=== PATIENT | female | born 1945 | race Caucasian/White ===

== ENCOUNTER → 2016-09-22 | Outpatient (CLI) | payer OTHER | LOC: FIMAGING 15:50 | PROVIDERS: ATTEND Physician Assistant | DX: M25.552 Pain in left hip (principal); M16.12 Unilateral primary osteoarthritis, left hip; M25.852 Other specified joint disorders, left hip; M51.36 Other intervertebral disc degeneration, lumbar region; S76.312S Strain of muscle, fascia and tendon of the posterior muscle group at thigh level, left thigh, sequela ==

== ENCOUNTER → 2017-03-31 | Outpatient (CLI) | payer OTHER | LOC: FIMAGING 16:21 | PROVIDERS: ATTEND Internal Medicine | DX: Z12.31 Encounter for screening mammogram for malignant neoplasm of breast (principal) | CPT/HCPCS: G0202 ==

== ENCOUNTER 2017-04-12 17:22 | Emergency (ER) | payer OTHER ==
[2017-04-12 17:36] VITALS: BP 120/80; PULSE 80; RESP 16; TEMP 99.5; O2SAT 94
--- NOTE | 2017-04-12 18:02 | EDPHY ---
H & P Time Seen by Provider: 04/12/17 17:28 HPI/ROS: CHIEF COMPLAINT: Cough, sinus congestion History by patient HISTORY OF PRESENT ILLNESS: 71-year-old woman with a history of seizures and depression presents complaining of 3 days of runny nose, sinus congestion and pressure in her cheeks, forehead, ears and jaw and a cough productive of dickey sputum. Patient denies any fever but has felt chilled at home. He had some "queasiness but no nausea or vomiting. She has had no diarrhea or rash. She has been exposed to multiple people with similar illnesses at work and her grandchildren. Patient quit smoking 20 years ago. She has tried a Neti pot and Claritin with minimal relief. REVIEW OF SYSTEMS: As in HPI, and all other systems reviewed and are negative Smoking Status: Never smoked Physical Exam: General Appearance: Alert and no distress. Head: normocephalic, atraumatic, no sinus tenderness Eyes: Pupils equal and round no injection. Ears: TM without redness or bulging but with fluid behind the TMs bilaterally OP: mucus membranes moist, no tonsillar enlargement, no redness or exudates Neck: no meningismus, bilateral small, nontender cervical nodes, no submandibular nodes Respiratory: Chest is nontender, lungs are clear to auscultation. Positive end -expiratory wheeze on forced expiration and cough Cardiac: regular rate and rhythm. Gastrointestinal: Abdomen is soft and nontender, no masses, bowel sounds normal. Musculoskeletal: Neck is supple and nontender. Extremities have full range of motion and are nontender. Skin: No rashes or lesions. Constitutional: Initial Vital Signs Temperature (C) 37.5 C 04/12/17 17:31 Heart Rate 80 04/12/17 17:31 Respiratory Rate 16 04/12/17 17:31 Blood Pressure 120/80 04/12/17 17:31 O2 Sat (%) 94 04/12/17 17:31 O2 Delivery Mode Room Air Allergies/Adverse Reactions: erythromycin lactobionate [From Erythrocin] Allergy (Verified 04/12/17 17:30) Home Medications: Medication Instructions Recorded Divalproex Sodium [Depakote] 250 mg PO 04/03/12 QUETIAPINE FUMARATE [Seroquel] 50 mg PO 04/03/12 Estradiol 04/12/17 Meloxicam 04/12/17 MDM/Departure - [facility] ED Course/Re-evaluation: 71-year-old woman presents with URI symptoms x4 days with normal vital signs and no evidence of systemic toxicity. We discussed home care and conservative measures. We discussed how there is no indication for antibiotic treatment this time. Patient was discharged home in stable condition. - Depart Disposition: Home, Routine, Self-Care Clinical Impression: Upper respiratory infection, acute Condition: Good Instructions: Upper Respiratory Infection (ED) Additional Instructions: You were seen by Dr. April Wright today. Take pseudoephedrine for your congestion and sinus pain. Try using albuterol inhaler for your cough, especially before bed at night. Try hot drinks with honey for cough and sore throat. You may take Tylenol as needed for pain. Return for any worsening or new concerns. Referrals: Antionette Hitchcock MD [Primary Care Provider] - As per Instructions
[2017-04-12] MEDS ORDERED: ALBUTEROL INH PREPACK MDI TAKEHOME ONE (18:04)
== END 2017-04-12 18:15 | disposition home or self-care (01) ==
LOC: CED 17:22
DX: J06.9 Acute upper respiratory infection, unspecified (principal)

== ENCOUNTER 2017-10-22 09:07 | Inpatient (IN) | payer OTHER ==
--- NOTE | 2017-10-22 08:17 | PDHPUP ---
History & Physical Update H&P update statement: This history and physical update is based on an assessment of the patient which was completed after admission or registration (within 24 hours), but prior to the surgery/procedure. H&P update: H&P reviewed & patient examined, no change in patient's condition since H&P completed
[~2017-10-22 09:07] MED LIST: BUPI/epINEPH/KETOROLAC IU ONE; ROPIVACAINE 0.2% 80 MG, EPINEPHrine 0.2 MG, KETOROLAC TROMETHAMINE 30 MG in SYRINGE 0 ML IU ONE; TRANEXAMIC ACID 3,000 MG in NS (SYRINGE) 50 ML IRR ONE; TRANEXAMIC ACID 3,000 MG/50 ML BAG IRR ONE
[2017-10-22] MEDS ORDERED: DEXAMETHASONE 4 MG/ML VIAL IVP ONE (09:38)
[2017-10-22] MEDS ORDERED: ACETAMINOPHEN 325 MG TAB PO ONE (09:38)
[2017-10-22] MEDS ORDERED: FAMOTIDINE 20 MG TAB PO ONE (09:38)
[2017-10-22] MEDS ORDERED: ceFAZolin 2 GM/SWFI 2 GM/20 ML SYR IVP ONE (09:38)
[2017-10-22] MEDS ORDERED: LR 1,000 ML IV ONE (09:39)
[2017-10-22] MEDS ORDERED: LIDOCAINE 1% 2 ML INJ ID PRN (09:39)
[2017-10-22] MEDS ORDERED: MIDAZOLAM 2 MG/2 ML VIAL IVP ONE (10:53)
--- NOTE | 2017-10-22 10:53 | PDANEPAE ---
ANE History of Present Illness Hip OA ANE Past Medical History - Cardiovascular History Hx Hypertension: No Hx Arrhythmias: No Hx Chest Pain: No Hx Coronary Artery / Peripheral Vascular Disease: No Hx CHF / Valvular Disease: No Hx Palpitations: No - Pulmonary History Hx COPD: No Hx Asthma/Reactive Airway Disease: No Hx Recent Upper Respiratory Infection: No Hx Oxygen in Use at Home: No Hx Sleep Apnea: No Sleep Apnea Screening Result - Last Documented: Negative - Neurologic History Hx Cerebrovascular Accident: No Hx Seizures: Yes Hx Dementia: No Neurologic History Comment: poorly understood seizure disorders- on depakote- she can feel the symptoms but not seen by others. last one maybe two months ago. recent headaches- went to pcp this morning she feels they are more sinus headaches - Endocrine History Hx Diabetes: No - Renal History Hx Renal Disorders: No - Liver History Hx Hepatic Disorders: No - Neurological & Psychiatric Hx Hx Neurological and Psychiatric Disorders: Yes Neurological / Psychiatric History Comment: bipolar - Cancer History Hx Cancer: No - Congenital Disorder History Hx Congenital Disorders: No - GI History Hx Gastrointestinal Disorders: No - Other Health History Other Health History: wears glasses. 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 1979 uterine suspension and lysis of adhesions from endometriosis. bone setting. tonsillectomy at 20 yo ANE Review of Systems Review of Systems: - Exercise capacity METS (RN): 4 METS ANE Patient History - Allergies Allergies/Adverse Reactions: erythromycin lactobionate [From Erythrocin] Allergy (Verified 09/29/17 12:02) makes me feel sick to my stomach hydrocodone Allergy (Verified 09/29/17 12:02) makes me feel like i can't breathe - Home Medications Home Medications: Acetaminophen [Tylenol ES 500 mg (*)] 500 mg PO Q6 PRN 09/22/17 [Last Taken ] Cholecalciferol Vit D3 [Vitamin D3 (*)] 2,000 units PO DAILY 09/22/17 [Last Taken 2 Weeks Ago ~10/08/17] Divalproex ER [Depakote ER 500 MG (*)] 500 mg PO HS 09/22/17 [Last Taken 00:59] Estradiol Cream 0.5 gm TP WESA 09/22/17 [Last Taken 10/15/17] Herbals/Supplements -Info Only 1 ea PO DAILY 09/22/17 [Last Taken 2 Weeks Ago ~ 10/08/17] Meloxicam 15 mg PO DAILY 09/22/17 [Last Taken 2 Weeks Ago ~10/08/17] [place]-3 Fatty Acids [Fish Oil 1000 mg (*)] 1,000 mg PO DAILY 09/22/17 [Last Taken 2 Weeks Ago ~10/08/17] QUEtiapine FUMARATE [Seroquel 25 mg (*)] 25 mg PO HS 09/22/17 [Last Taken 00:59] - NPO status NPO Since - Liquids (Date): 10/22/17 NPO Since - Liquids (Time): 08:00 NPO Since - Solids (Date): 10/21/17 NPO Since - Solids (Time): 23:00 - Anes Hx Anes Hx: no prior problems - Smoking Hx Smoking Status: Former smoker - Family Anes Hx Family Hx Anesthesia Complications: mother- was alcoholic- extreme confusion after anesthesia ANE Labs/Vital Signs - Vital Signs Blood Pressure: 126/73 Heart Rate: 59 Respiratory Rate: 16 O2 Sat (%): 96 Height: 173.99 cm Weight: 77.111 kg ANE Physical Exam - Airway Neck exam: decreased ROM Mallampati Score: Class 1 Mouth exam: normal dental/mouth exam - Pulmonary Pulmonary: no respiratory distress - Cardiovascular Cardiovascular: regular rate and rhythym - ASA Status ASA Status: II ANE Anesthesia Plan Anesthesia Plan: spinal
[2017-10-22] MEDS ORDERED: PROPOFOL/EMULSION 500 MG/50 ML BOTTLE IV ONE ×2 (11:02→12:11)
[2017-10-22] MEDS ORDERED: HYDROmorphONE/DILAUDID 1 MG/ML INJ IVP PRN (11:54)
[2017-10-22] MEDS ORDERED: NALOXONE HCL 0.4 MG/ML INJ IVP PRN (11:54)
[2017-10-22] MEDS ORDERED: ONDANSETRON 4 MG/2 ML VIAL IVP PRN ×2 (11:54→12:37)
[2017-10-22] MEDS ORDERED: PROMETHAZINE HCL 25 MG/ML INJ IVP PRN ×2 (11:54→12:37)
--- NOTE | 2017-10-22 12:36 | POSTANESTH ---
Post Anesthetic Evaluation Cardiovascular Status: Normal, Stable Respiratory Status: Normal, Stable Level of Consciousness/Mental Status: Can Participate in Eval Pain Control: Adequate, Prn Tx Ordered Nausea/Vomiting Control: Adequate, Prn Tx Ordered Complications Possibly Related to Anesthesia: None Noted
[2017-10-22] MEDS ORDERED: MAGNESIUM HYDROXIDE 30 ML UDCUP PO PRN (12:37)
[2017-10-22] MEDS ORDERED: BISACODYL 10 MG SUPP PR PRN (12:37)
[2017-10-22] MEDS ORDERED: diphenhydrAMINE 25 MG CAP PO PRN (12:37)
[2017-10-22] MEDS ORDERED: METOCLOPRAMIDE 10 MG/2 ML VIAL IVP PRN (12:37)
[2017-10-22] MEDS ORDERED: POLYETHYLENE GLYCOL 3350 17 GM PKT PO PRN (12:37)
[2017-10-22] MEDS ORDERED: TEMAZEPAM 15 MG CAP PO PRN (12:37)
[2017-10-22] MEDS ORDERED: LACTULOSE 20 GM/30 ML UDCUP PO PRN (12:37)
[2017-10-22] MEDS ORDERED: DIPHENOXYLATE/ATROPINE LOMOTIL 1 TAB PO PRN (12:37)
[2017-10-22] MEDS ORDERED: ONDANSETRON DISINTEGRATING 4 MG TAB PO PRN (12:37)
[2017-10-22] MEDS ORDERED: PROMETHAZINE HCL 25 MG SUPPR PR PRN (12:37)
--- NOTE | 2017-10-22 12:37 | POSTOPPROG ---
Post Op Note Date of Operation: 10/22/17 Surgeon: Sunshine Locke Assistant Front End Manager: richard locke Anesthesiologist: dr. ayers Anesthesia: Spinal Pre-op Diagnosis: left hip OA Post-op Diagnosis: same Indication: left hip pain Procedure: L MANNY ant approach Findings: severe hip OA Inf/Abcess present in the surg proc area at time of surgery?: No EBL: 100-500
[2017-10-22] MEDS ORDERED: LR 1,000 ML IV SCH (13:00)
[2017-10-22] MEDS ORDERED: fentaNYL 100 MCG/2 ML INJ ONE (13:52)
[2017-10-22] MEDS: fentaNYL 100 MCG/2 ML INJ IVP PRN ×3 (13:54→14:47)
[2017-10-22] MEDS ORDERED: ceFAZolin 2 GM/DEXTROSE 100 ML IV SCH (14:00)
[2017-10-22] MEDS: CYCLOBENZAPRINE 10 MG TAB PO PRN (15:34)
[2017-10-22] MEDS: oxyCODONE IR 5 MG TAB PO PRN ×3 (15:35→22:33)
[2017-10-22] MEDS: ACETAMINOPHEN 325 MG TAB PO SCH (18:16)
[2017-10-22] MEDS: ceFAZolin 2 GM/SWFI 2 GM/20 ML SYR IVP SCH (18:17)
[2017-10-22] MEDS: DIVALPROEX ER 500 MG TAB PO SCH (21:48)
[2017-10-22] MEDS: ASPIRIN 81 MG CHEWABLE TAB PO SCH (21:48)
[2017-10-22] MEDS: SENNOSIDES/DOCUSATE SODIUM TAB PO SCH (21:48)
[2017-10-22] MEDS: FAMOTIDINE 20 MG TAB PO SCH (21:48)
[2017-10-22] MEDS: QUEtiapine FUMARATE 25 MG TAB PO SCH (21:48)
[2017-10-23] MEDS: ACETAMINOPHEN 325 MG TAB PO SCH ×4 (00:13→18:54)
[2017-10-23] MEDS: CYCLOBENZAPRINE 10 MG TAB PO PRN ×3 (00:13→21:47)
[2017-10-23] MEDS: ceFAZolin 2 GM/SWFI 2 GM/20 ML SYR IVP SCH (02:46)
[2017-10-23] MEDS: oxyCODONE IR 5 MG TAB PO PRN (09:02)
[2017-10-23] MEDS: ASPIRIN 81 MG CHEWABLE TAB PO SCH ×2 (09:02→21:45)
[2017-10-23] MEDS: FAMOTIDINE 20 MG TAB PO SCH ×2 (09:03→21:46)
[2017-10-23] MEDS: SENNOSIDES/DOCUSATE SODIUM TAB PO SCH ×2 (09:10→21:46)
[2017-10-23] MEDS ORDERED: NS 500 ML IV ONE (12:00)
--- NOTE | 2017-10-23 12:40 | PDMN ---
Medical Necessity Medical necessity: IP surgery per [facility] cpt [id number] LTHA
--- NOTE | 2017-10-23 13:13 | SOAPPROG ---
SOAP Progress Note Assessment/Plan: Assessment: Patient is doing well POD 1 s/p L MANNY Pain management: pain is well controlled on oral pain meds. VTE ppx: recommend aspirin 81 mg BID for 4 weeks, cont NANNETTE and SCDs Anemia: level is expected initially postop. Asymptomatic. Continue to monitor D/c planning: d/c to home today pending release from PT lightheadedness: recommend IV NS bolus, increase fluids, monitor. proceed with caution with going from laying to sittting to standing. Work with PT again this afternoon, if continues to be symptomatic, may need another night in the hospital. Plan: 10/23/17 13:11 Subjective: Katherine is resting comfortably, denies SOB ,chest pain and N/V. c/o lightheadedness Objective: Vital Signs Temp Pulse Resp BP Pulse Ox 36.6 C 64 16 92/47 L 99 10/23/17 12:00 10/23/17 12:00 10/23/17 12:00 10/23/17 12:00 10/23/17 12:00 Laboratory Results 10/23/17 05:05 10/22/17 10/23/17 10/24/17 05:59 05:59 05:59 Intake Total 2675 Output Total 1450 Balance 1225 incision dressing is clean and dry, NVI< +pf/df ICD10 Worksheet Patient Problems: Problems Problem Status Onset Primary localized osteoarthritis of left hip Acute
--- NOTE | 2017-10-23 13:51 | GOP ---
[f rep st] OPERATIVE REPORT DATE OF OPERATION: 10/22/2017 SURGEON: Noemi Garcia MD TOOLING MECHANIC: Ana Garcia PA-C ANESTHESIA: Spinal. PREOPERATIVE DIAGNOSIS: Left hip osteoarthritis. POSTOPERATIVE DIAGNOSIS: Left hip osteoarthritis. PROCEDURE PERFORMED: Left total hip arthroplasty with x-ray. FINDINGS: ESTIMATED BLOOD LOSS: 200 cc. INDICATIONS: The patient has progressively worsening arthritis of the hip, which has failed medical management. The patient understands the treatment options, including continued nonoperative care, an d has selected surgical intervention. The patient has decided to undergo total hip arthroplasty via the direct anterior approach, understanding the risks of the procedure including, but not limited to, neurovascular injury, infection, persistent pain, component wear and loosening, deep venous thrombos is, pulmonary embolism, limb length inequality, hip instability (including dislocation), and intraope rative fractures. DESCRIPTION OF PROCEDURE: After proper identification of the patient, including verification and mar jeannine the surgical site, the patient was brought to the operating room and placed in the supine positi on. All bony prominences were well padded. Anesthesia was induced without complication and intraven ous prophylactic antibiotics were administered prior to skin incision. The operative leg was placed in the Trumpf Arch table extension and the well leg in a Yellofin leg ho lder. The patient was prepped and draped in the usual sterile fashion. The C-arm was draped for int raoperative fluoroscopy to check acetabular position, femoral component position, including leg lengt h, and femoral offset. Attention was then drawn to surgical exposure of the hip. An incision was made with a #10 Bard Saida r blade starting 3 cm lateral and 3 cm distal to the anterior superior iliac spine measuring 8 to 10 cm and coursing distally toward the greater trochanter. The skin and subcutaneous tissues were divid ed sharply down to the fascia cuate. The fascia cuate was incised in line with the skin incision expos ing the underlying tensor fascia cuate muscle. The muscle was bluntly elevated from the fascia and th e first extracapsular Cobra retractor was placed laterally at the junction of the superior femoral ne ck and greater trochanter. The lateral femoral circumflex vessels were identified, cauterized, and d ivided with the Aquamantys bipolar cautery. The deep investing fascia of the TFL was divided to allo w proper mobilization of the muscle preventing damage during the retraction. The reflected head of t he rectus femoris muscle was elevated off the anterior hip capsule and a medial Cobra retractor was p laced just proximal to the lesser trochanter. The anterior capsulotomy was made sharply from the superolateral acetabulum to the saddle junction of the superior femoral neck and greater trochanter, then coursing inferomedial towards the lesser troc hanter. The retractors were then placed in the intracapsular position for femoral neck osteotomy. C orresponding to pre-operative templating, the osteotomy was made with the oscillating saw carefully p rotecting the greater trochanter and soft tissues. The femoral head was removed from the acetabulum with a corkscrew and confirmed to be severely arthritic with exposed bone, deformity and osteophytes. Similar findings were confirmed in the acetabulum. The Arch table extension was then placed in 40 degrees external rotation. Attention was then drawn to the acetabular preparation. After placement of the anterior and posterio r Cobra retractors outside the labrum and intracapsular, the circumferential labrum was removed sharp ly. The foveal contents were then removed and hemostasis obtained with cautery. The first reamer selected was sized using the removed femoral head. Reaming began with medialization and then commenced in 2 mm increments at 45 degrees of abduction and 15 degrees of anteversion using fluoroscopic navigation. Reaming ceased 1 mm less than the definitive acetabular component and breanna esponded to the pre-operative templating. The final acetabular component was inserted using fluorosc opy to achieve proper orientation yielding excellent purchase and stability in the acetabulum. The f inal acetabular liner was then placed and its seating confirmed. Attention was then turned to the femur. The Arch table extension was placed in extension and adducti on, delivering the osteotomized femoral neck into the wound. A 2-pronged femoral elevator was placed at the calcar and another at the tip of the greater trochanter. The posterolateral capsule was rele ased with cautery allowing mobilization of the femur lateral and anterior for preparation. The exter nal rotators were visualized and preserved. A curette and rongeur were used to open the starting poi nt for broaching. Serial broaching started with the #0 broach and ended with the broach that exhibit ed excellent fit in the proximal femur. A change in pitch during mallet strikes was accompanied by nicole glover inability to advance the broach any further. The trial reduction was performed and fluoroscopic n avigation was utilized to check limb length. Adjustments were made to equalize limb length according ly. After the final trials were accepted they were removed and the wound was copiously lavaged. The femo ral component was seated to the same depth as the final broach and the femoral head was impacted onto the clean trunnion. The hip was then reduced for the final time and once more fluoroscopy was used to check that limb length equality was achieved. The wound was irrigated and closed in layers, the fascia cuate with 2-0 Quill, the subcutaneous tissue with 2-0 Quill, and the skin with Dermabond. Sterile dressings were applied. Final sharps and spon ge counts were accurate. The patient was then transferred to a hospital bed and brought to the [facility] room in stable condition. IMPLANTS: Accolade II size 4 at 127. Acetabular component is a 58 mm Trident II. The liner is a Tr ident X3, 36 mm. The head is a Biolox Delta 36 mm +5. /[id number]/MODL
[2017-10-23] MEDS ORDERED: oxyCODONE IR 5 MG TAB PO PRN (15:03)
[2017-10-23] MEDS: DIVALPROEX ER 500 MG TAB PO SCH (21:46)
[2017-10-23] MEDS: QUEtiapine FUMARATE 25 MG TAB PO SCH (21:46)
[2017-10-24] MEDS: ACETAMINOPHEN 325 MG TAB PO SCH ×4 (00:18→18:35)
[2017-10-24] MEDS ORDERED: oxyCODONE IR 5 MG TAB PO PRN (07:49)
[2017-10-24] MEDS ORDERED: NS 500 ML IV ONE (10:30)
[2017-10-24] MEDS: ASPIRIN 81 MG CHEWABLE TAB PO SCH ×2 (11:28→20:47)
[2017-10-24] MEDS: FAMOTIDINE 20 MG TAB PO SCH ×2 (11:28→20:47)
--- NOTE | 2017-10-24 12:24 | SOAPPROG ---
SOAP Progress Note Assessment/Plan: Assessment: Patient is doing well POD 2 s/p L MANNY Pain management: patient has pain with light touch to quad, will start gabapentin, most likely nerve pain contributing to overall pain picture VTE ppx: recommend aspirin 81 mg BID for 4 weeks, cont NANNETTE and SCDs Anemia: level has decreased a little, but patient has received several boluses due to hyptension, may be artificially low. Continue to monitor D/c planning: d/c to home vs SNF tomorrow pending release from PT and improvement in symptomatic hypotension lightheadedness: recommend IV NS bolus this morning, increase fluids, monitor. proceed with caution with going from laying to sitting to standing. patient may need SNF placement tomorrow. Plan: 10/23/17 13:11 10/24/17 12:21 Subjective: franky continues to c/o pain, even to light touch, and lightheadedness. Objective: Vital Signs Temp Pulse Resp BP Pulse Ox 36.9 C 66 16 86/44 L 98 10/24/17 08:15 10/24/17 08:15 10/24/17 08:15 10/24/17 08:15 10/24/17 08:15 Laboratory Results 10/24/17 05:05 10/23/17 10/24/17 10/25/17 05:59 05:59 05:59 Intake Total 2675 1250 Output Total 1450 3200 Balance 1225 -1950 incision dressing is clean and dry, TTP light touch distal quad, impaired hip flexion 2/5. ICD10 Worksheet Patient Problems: Problems Problem Status Onset Primary localized osteoarthritis of left hip Acute
[2017-10-24] MEDS: SENNOSIDES/DOCUSATE SODIUM TAB PO SCH ×2 (12:44→20:46)
[2017-10-24] MEDS: GABAPENTIN 300 MG CAP PO SCH ×2 (13:00→20:47)
--- NOTE | 2017-10-24 16:16 | ASMTCASEMG ---
Living Arrangements What is your living Answers: With Spouse arrangement? Who do you live with? Type Of Residence What kind of residence do Answers: House you live in? Discharge Plan Comments Coordination Status Comments Notes: PT is recommending SNF. CM spoke w/ ELIZABETH Espinosa regarding d/c POC. Ana would like CM to look into SNF. CM met w/ pt for dispo planning. Pt is agreeable to going to [facility] if she didn't improve tomorrow. CM completed triggered PASRR. CM faxed [facility]RR to [facility]. CM spoke w/ [facility] at [facility]. [facility] does not have a bed available until Friday. CM informed pt of this. CM provided pt w/ list of SNF in [facility]. Pt has chosen [facility]. Referrals made there. CM to follow. Plan: TBD Date Signed: 10/24/2017 04:16 PM Electronically Signed By:KISHA Henriquez
[2017-10-24] MEDS: DIVALPROEX ER 500 MG TAB PO SCH (20:47)
[2017-10-24] MEDS: QUEtiapine FUMARATE 25 MG TAB PO SCH (20:47)
[2017-10-25 00:17] VITALS: O2SAT 97
[2017-10-25] MEDS: ACETAMINOPHEN 325 MG TAB PO SCH ×3 (01:08→12:32)
[2017-10-25] MEDS: CYCLOBENZAPRINE 10 MG TAB PO PRN (01:09)
[2017-10-25 08:02] VITALS: BP 102/53; PULSE 65; TEMP 98.4
[2017-10-25] MEDS: ASPIRIN 81 MG CHEWABLE TAB PO SCH (09:05)
[2017-10-25] MEDS: SENNOSIDES/DOCUSATE SODIUM TAB PO SCH (09:06)
[2017-10-25] MEDS: FAMOTIDINE 20 MG TAB PO SCH (09:06)
[2017-10-25] MEDS: GABAPENTIN 300 MG CAP PO SCH (09:06)
--- NOTE | 2017-10-25 12:18 | SOAPPROG ---
SOAP Progress Note Assessment/Plan: Assessment: Patient is doing well POD 3 s/p L MANNY Pain management: patient has pain with light touch to quad, will start gabapentin, most likely nerve pain contributing to overall pain picture VTE ppx: recommend aspirin 81 mg BID for 4 weeks, cont NANNETTE and SCDs Anemia: level has decreased a little, but patient has received several boluses due to hyptension, may be artificially low. Continue to monitor D/c planning: d/c to SNF today Plan: 10/23/17 13:11 10/24/17 12:21 10/25/17 12:17 Subjective: agreeable for SNF placement Objective: Vital Signs Temp Pulse Resp BP Pulse Ox 36.9 C 65 16 102/53 L 97 10/25/17 08:00 10/25/17 08:00 10/25/17 08:00 10/25/17 08:00 10/25/17 08:00 Laboratory Results 10/24/17 05:05 10/24/17 10/25/17 10/26/17 05:59 05:59 05:59 Intake Total 1250 450 Output Total 3200 600 Balance -1950 -600 450 incision dressing is clean and dry ICD10 Worksheet Patient Problems: Problems Problem Status Onset Primary localized osteoarthritis of left hip Acute
--- NOTE | 2017-10-25 12:20 | PDIAF ---
- Diagnosis Diagnosis: s/p MANNY Code Status: Full Code - Medication Management Discharge Medications: Medications to Continue on Transfer Acetaminophen [Tylenol ES 500 mg (*)] 500 mg PO Q6 PRN 09/22/17 [Last Taken ] Cholecalciferol Vit D3 [Vitamin D3 (*)] 2,000 units PO DAILY 09/22/17 [Last Taken 2 Weeks Ago ~10/08/17] Divalproex ER [Depakote ER 500 MG (*)] 500 mg PO HS 09/22/17 [Last Taken 00:59] Herbals/Supplements -Info Only 1 ea PO DAILY 09/22/17 [Last Taken 2 Weeks Ago ~ 10/08/17] [place]-3 Fatty Acids [Fish Oil 1000 mg (*)] 1,000 mg PO DAILY 09/22/17 [Last Taken 2 Weeks Ago ~10/08/17] QUEtiapine FUMARATE [Seroquel 25 mg (*)] 25 mg PO HS 09/22/17 [Last Taken 00:59] Acetaminophen [Tylenol 325mg (*)] 650 mg PO Q6HRS tab 10/23/17 [Last Taken Unknown] Aspirin [Aspirin 81mg (*)] 81 mg PO BID tab.chew 10/23/17 [Last Taken Unknown] Cyclobenzaprine [Flexeril 10 MG (*)] 10 mg PO Q8HRS PRN tab 10/23/17 [Last Taken Unknown] Ondansetron Odt [Zofran Odt 4 mg (*)] 4 mg PO Q4HRS PRN tab 10/23/17 [Last Taken Unknown] Sennosides/Docusate Sodium [Senokot-S] 1 - 2 tab PO BID tab 10/23/17 [Last Taken Unknown] celeCOXIB [Celebrex (*)] 200 mg PO DAILY cap 10/23/17 [Last Taken Unknown] oxyCODONE IR [Oxycodone Ir (*)] 5 - 10 mg PO Q3HRS PRN tab 10/23/17 [Last Taken Unknown] Gabapentin [Neurontin 300 MG (*)] 300 mg PO BID cap 10/25/17 [Last Taken Unknown] Additional Medication Instructions: Joint Protocol-Hip Replacement. Follow up with Dr. Lorenz office as scheduled. After surgery instructions: Take Aspirin 81mg by mouth morning and evening for 4 weeks (helps to prevent blood clots). Wear thigh high NANNETTE hose on both legs during the daytime for 2 weeks ( helps to prevent blood clots and decrease swelling in the surgical leg). It is ok to remove NANNETTE hose at night time to give your legs a break. It is common for swelling and bruising to occur in the entire surgical leg even extending to the foot, if concerned call Dr. Negron office [phone]. Weight bearing as tolerated. Use a walker for 7-14 days. Do exercises in the book 2-3 times a day. Ice at least 3-5 times a day for 30 minutes each time, if not more often. ~~If you have further questions that are not addressed here, please look at the information packet handed to you at the preop appointment. ~Most will be answered on the FAQs, after surgery instructions and incision care pages. ~You may also call Dr. Kelechi lai with questions as well. *IF YOU HAVE A LIFE THREATENING EMERGENCY, CALL 911. FOR NON-LIFE THREATENING ISSUES, PLEASE CALL DR. LORENZ OFFICE FIRST. A PHYSICIAN IS CAREER INFORMATION SPECIALIST 24/02. Incision/ Dressing Care: May shower tomorrow, Incision dressing is waterproof. Do not soak in water, but shower is ok. Keep the incision (anthony) dressing clean and dry. If the incision dressing gets soiled or wet underneath, change dressing to the dressing given to you by the hospital. (anthony dressing will turn black if drainage occurs). Remove incision dressing (anthony one) two weeks after surgery. ~Leave steri strips alone. ~They will fall off on their own. Do not have anyone else remove the incision dressing prior to the stated recommendation (2 weeks after surgery). ~If there are incision concerns, contact Dr. Negron office. ~ (Ana or Dr. Garcia may remove earlier if concerns arise). If incision site (anthony dressing) has drainage, call Dr. Negron office, . ~Ana and Dr. Garcia may ask you to come into the office for further evaluation Discharge Medications: Refer to the Discharge Home Medication list for PRN reason. - Orders Diet Recommendation: no restrictions on diet Diet Texture: Regular Texture Diet - Follow Up Care Current Providers and Referrals: Antionette Hitchcock MD [Primary Care Provider] - Ana Garcia PA [Physician Firebreak Cutter] - 11/13/17 11:00 am
[2017-10-25 13:50] VITALS: RESP 95
--- NOTE | 2017-10-25 17:27 | ASDISCHSUM ---
Discharge Information Plan Status:SNF Medically Cleared to Leave:10/25/2017 Discharge Date:10/25/2017 03:05 PM D/C Disposition:[facility] ADT D/C Disposition:[facility] Projected Discharge Date:10/25/2017 11:00 AM Transportation at D/C:Wheelchair Van Discharge Delay Reason: Follow-Up Date:10/25/2017 11:00 AM Discharge Slot: Final Diagnosis: Placement Information Referral Type:*Penitentiary/SNF Referral ID:[id number] Provider Name:[facility] Address 1:[address] Address 2: City:[place] Selection Factors: State:[place] Patient Contact Information Contact Name:DARLING Relationship:Life Partner Address:[address] Work Phone: [facility]:[place] Alternate Phone: State/Zip Code:[place] [address] Email: Financial Information Financial Class:Medicare Primary Plan Desc:MEDICARE INPATIENT Primary Plan Number:[id number] Secondary Plan Desc:DANI Secondary Plan Number:[id number] Assessment Information LACE LACE Length of stay for Answers: 3 days current admission Acuity / Level of Answers: Yes Care: Did the patient have an inpatient admission? Comorbidities - select Answers: Opioid dependence all that apply / Chronic pain Other Notes: Seizure disorder # of Emergency department Answers: 1-2 visits in the last 6 months Social determinants Answers: Mental health diagnosis (anxiety, depression, pers onality disorders, etc.) Score: 15 Date Signed: 10/25/2017 05:26 PM Electronically Signed By:MARY De Santiago [facility] CM Assessment Living Arrangements What is your living Answers: With Spouse arrangement? Who do you live with? Type Of Residence What kind of residence do Answers: House you live in? Discharge Plan Comments Coordination Status Comments Notes: PT is recommending SNF. CM spoke w/ ELIZABETH Espinosa regarding d/c POC. Ana would like CM to look into SNF. CM met w/ pt for dispo planning. Pt is agreeable to going to [facility] if she didn't improve tomorrow. CM completed triggered PASRR. CM faxed PASRR to [facility]. CM spoke w/ [facility]. [facility] does not have a bed available until Friday. CM informed pt of this. CM provided pt w/ list of SNF in [facility]. Pt has chosen [facility]. Referrals made there. CM to follow. Plan: TBD Date Signed: 10/24/2017 04:16 PM Electronically Signed By:KISHA Henriquez Case Management Discharge Plan Note Case Management Discharge Discharge Order Complete? Answers: Yes Patient to Obtain Answers: Other Notes: [facility] SN[facility] Medications Transportation Arranged Answers: Other Notes: [facility] Faxed Final Orders Answers: Yes Discharge Comments Notes: Pt discharged to [facility] today. Transportation arranged by [facility] with their van. D/C meds and order sent via [facility]. IM done, copy to pt and in chart. Date Signed: 10/25/2017 05:25 PM Electronically Signed By:MARY De Santiago Intervention Information
== END 2017-10-25 15:05 | DRG 470 ==
LOC: F3N 09:07
PROVIDERS: ADMIT Orthopaedic Surgery; ATTEND Orthopaedic Surgery
PROC: 0SRB04Z Replacement of Left Hip Joint with Ceramic on Polyethylene Synthetic Substitute, Open Approach (ICD-10-PCS; principal; 2017-10-22 11:15)
DX: M16.12 Unilateral primary osteoarthritis, left hip (principal)
CPT/HCPCS: 97110-GP; 97116-GP; 97161-GP; 97165-GO; 97530-GO; 97530-GP; 97535-GO; G8978-GP-CK; G8979-GP-CJ; G8987-GO-CJ; G8988-GO-CI; J0171; J0690; J1100; J1885; J2250; J2270; J2405; J2704; J3010